=== PATIENT | female | born 1990 | race Caucasian/White ===

== ENCOUNTER 2016-11-13 13:42 | Emergency (ER) | payer OTHER ==
[~2016-11-13 13:42] MED LIST: ACYCLOVIR PO; AMOXICILLIN PO; DEPO-MEDROL20 MG/ML IJ; DIFLUCAN PO; FERROUS SULFATE PO; KEFLEX500 MG PO; MACRODANTIN PO; NO MEDICATIONS; PRENATAL VITAMI1 TA3 PO; VICODIN 5/1 TAB 5/50 PO; VOLTAREN75 MG PO
[2016-11-13] MEDS ORDERED: FLAGYL PO (13:50)
== END 2016-11-13 14:48 | disposition home or self-care (01) ==
LOC: SED 13:42
DX: R21 Rash and other nonspecific skin eruption (principal); Z98.890 Other specified postprocedural states; Z79.899 Other long term (current) drug therapy
CPT/HCPCS: 99282